=== PATIENT | male | born 1990 | race Hispanic/Latino ===

== ENCOUNTER 2017-11-13 07:45 | Emergency (ER) | payer OTHER, SELFPAY ==
[2017-11-13] MEDS ORDERED: Ibuprofen 800 MG TAB ONE (08:29)
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
== END 2017-11-13 09:06 | disposition home or self-care (01) ==
LOC: ERS 07:45 → EDBD 07:45 → ERS 09:06
DX: M25.511 Pain in right shoulder (principal); R07.81 Pleurodynia; M25.521 Pain in right elbow; V43.52XA Car driver injured in collision with other type car in traffic accident, initial encounter; W22.11XA Striking against or struck by driver side automobile airbag, initial encounter
CPT/HCPCS: 71046

== ENCOUNTER 2018-01-17 20:57 | Emergency (ER) | payer OTHER, SELFPAY ==
[2018-01-17] MEDS ORDERED: Bupivacaine 0.5% 10 ML VIAL ONE (23:37)
[2018-01-17] MEDS ORDERED: Lidocaine Viscous Sol 2% 15 ml UD Cup ONE (23:37)
[2018-01-17] MEDS ORDERED: Lidocaine 1% w/Epinephrine 1:100K 20 ML VIAL ONE (23:37)
== END 2018-01-18 00:09 | disposition home or self-care (01) ==
LOC: ERS 20:57
DX: K02.9 Dental caries, unspecified (principal)
CPT/HCPCS: 64400; J2001; J3490

== ENCOUNTER 2020-05-24 12:17 | Emergency (ER) | payer OTHER, SELFPAY ==
[2020-05-25 15:21] LABS: SARS-CoV-2 MS2 Positive; SARS-CoV-2 N Gene Positive; SARS-CoV-2 S Gene Positive; SARS-CoV-2 by NAA DETECTED (NotDetected); SARS-CoV-2 orf1ab Positive
== END 2020-05-24 12:54 | disposition home or self-care (01) ==
LOC: ERS 12:17
DX: U07.1 COVID-19 (principal)
CPT/HCPCS: 87635; 99283; U0003

== ENCOUNTER 2021-06-17 14:58 | Emergency (ER) | payer SELFPAY ==
[2021-06-18 19:58] LABS: SARS-CoV-2 PCR by NAA Not Detected (NotDetected)
== END 2021-06-17 17:32 | disposition home or self-care (01) ==
LOC: ERS 14:58
DX: H66.92 Otitis media, unspecified, left ear (principal); I10 Essential (primary) hypertension; E78.5 Hyperlipidemia, unspecified; Z20.822 Contact with and (suspected) exposure to COVID-19
CPT/HCPCS: 99283; U0003; U0005

== ENCOUNTER 2023-03-06 02:59 | Emergency (ER) | payer SELFPAY | END 2023-03-06 04:00 | disposition home or self-care (01) | LOC: ERS 02:59 | DX: H65.92 Unspecified nonsuppurative otitis media, left ear (principal); H73.92 Unspecified disorder of tympanic membrane, left ear; R68.84 Jaw pain; E78.5 Hyperlipidemia, unspecified; I10 Essential (primary) hypertension | CPT/HCPCS: 99282 ==